=== PATIENT | female | born 1985 | race Caucasian/White ===

== ENCOUNTER → 2021-09-01 02:31 | Outpatient (CLI) | payer OTHER, SELFPAY ==
[2021-09-01 20:05] LABS: SARS-CoV-2 RNA PCR Negative
== END ==
PROVIDERS: Visit Provider Surgery Plastic and Reconstructive Surgery
DX: Z01.812 Encounter for preprocedural laboratory examination (principal); Z20.822 Contact with and (suspected) exposure to COVID-19
CPT/HCPCS: C9803; U0003; U0005

== ENCOUNTER 2021-09-01 08:11 | Outpatient (CLI) | payer OTHER, SELFPAY ==
--- NOTE | 2021-09-01 08:30 | ECG_ITS ---
Measurements Intervals [place] Rate: 76 P: 33 GA: 138 QRS: 18 QRSD: 89 T: -6 QT: 366 QTc: 413 Interpretive Statements SINUS RHYTHM BORDERLINE ST-T WAVE ABNORMALITY- INFERIOR LEADS BASELINE ARTIFACT- I, III, AVR, AVL, AVF BORDERLINE ECG Electronically Signed On 09-01-2021 8:29:31 [employer] by Julio Brambila D.O.
[2021-09-01 08:49] LABS: Anion Gap 8 mmol/L (8-16); Blood Urea Nitrogen 18 mg/dL (7-17); Calcium 9.2 mg/dL (8.4-10.2); Carbon Dioxide 28 mmol/L (22-30); Chloride 100 mmol/L (98-107); Estimated Glomerular Filt Rate > 60; Glucose 64 mg/dL (65-110); Potassium 3.7 mmol/L (3.4-5.0); Sodium 136 mmol/L (137-145)
== END 2021-09-01 08:12 | disposition home or self-care (01) ==
LOC: ANHSURGERY 08:14
PROVIDERS: Anesthesiology; Visit Provider Surgery Plastic and Reconstructive Surgery
DX: Z01.818 Encounter for other preprocedural examination (principal); E88.81 Metabolic syndrome and other insulin resistance
CPT/HCPCS: 36415; 80048; 93005

== ENCOUNTER 2021-09-04 00:10 | Day surgery (SDC) | payer OTHER, SELFPAY ==
[2021-08-25 14:20] VITALS: BMI 34.7
--- NOTE | 2021-08-25 14:34 | PC.NURSE ---
Report to the Outpatient Waiting Room, entrance under the green pavilion located off [facility], at time 0600 on date 09/04/21. OR Time: 0730. - You and your visitor will be asked a series of questions to screen for COVID 19 for your protection. - A mask is required within the hospital. - Only one visitor is allowed at this time. Patient visitors will be guided where to wait when not with patient. Preoperative COVID Testing Requirements: No COVID Test needed if: (proof is required; if not received patient will have Rapid Test prior to entry) - Patient has received COVID Vaccine at least 14 days prior to procedure date or - Patient has positive COVID test result within last 90 days of surgery date. COVID Test needed if above criteria is not met If not COVID vaccinated a COVID test must be conducted within 72 hours of surgery and patient is asked to isolate self from time of testing until procedure. You will go to the [facility] [facility] for your COVID testing. The [facility] [facility] site is located at the corner of [address] [facility]. COVID TEST 09/01 AT 0830 You will only be called if COVID results are positive and your surgeon may reschedule your elective surgery date. Patients may have clear liquids (water, carbonated beverages, clear teas, apple juice) until 3 hours prior to surgery with a maximum of 20 ounces. - No food from midnight until time of surgery - Infants may have breast milk until 4 hours before surgery, infant formula 6 hours prior to surgery. - Children will be allowed to drink immediately following surgery. If applicable, please bring a bottle or sippy cup to assist with drinking. Juice, water, soda, and popsicles are readily available. For infants on formula, please bring formula the day of surgery. Pacifiers are allowed. Take the following medications with a SIP of water the morning of surgery: SERTRALINE, TOPAMAX Medications to discontinue per physician: VITAMINS/SUPPLEMENTS Date to take last dose: 08/31/21 URINE COTININE TEST TO BE DONE MORNING OF SURGERY. IF RESULT IS POSITIVE, MEANING NICOTINE IS DETECTED, DR. MAGANA MAY CANCEL YOUR SURGERY. Please no make-up, nail guamanian, hairspray, perfume, deodorant, or body powder the day of surgery. No jewelry (including any body piercings) or valuables the day of surgery, leave them at home. Please take a shower or bath the night before, or the morning of, surgery with an antibacterial soap. Wear comfortable, loose fitting clothing. Children are encouraged to wear pajamas. - Jewelry must be removed prior to entering the operating room. Rings and piercings that are not removed may be cut off. - The hospital will not accept responsibility for valuables. - Please leave all valuables, including medications, at home the day of surgery. If you are going home after surgery, a licensed race car driver must drive you home. - NO public transportation without another adult. - We recommend that an adult stay with you for 24 hours following discharge. - We also recommend that you do not drive, make important decision, drink alcoholic beverages, or take any drugs that were not prescribed by your health care provider for at least 24 hours after your discharge time. For Pediatric surgeries, we recommend two adults accompany the child home (only one inside the building at this time). Follow any additional instructions given to you from your surgeon. Telephone instructions given to ABDIRAHMAN BOSS and asked if any additional questions and then verbalized understanding. Patient advised to call surgeon office or pre surgery nurse liaison [phone] if any additional questions.
--- NOTE | 2021-09-03 12:16 | P.PNAN_ITS ---
Anes - Initial Pre Proc Eval Procedure: Operation Date: 09/04/21 07:30 Proposed Procedures p Bilateral Breast Augmentation - Kieran Benedict MD s Bilateral Breast Mastopexy - Kieran Benedict MD Date/Time: 09/03/21 12:16 Surgeon: Kieran Benedict MD Pre Op Diagnosis: breast ptosis, micromastia Patient Data Age: 36 Gender: F Height: 1.6 m Weight: 88.9 kg Allergies Allergy/AdvReac Type Severity Reaction Status Date / Time latex Allergy Unknown Rash Verified 09/04/21 07:07 Home Medications Medication Instructions Recorded Confirmed Type multivitamin 1 tablet PO DAILY 03/17/21 08/25/21 History sertraline 100 mg tablet 100 mg PO DAILY 03/17/21 08/25/21 History topiramate 50 mg capsule 50 mg PO DAILY 03/17/21 08/25/21 History sprinkle,extended release 24 hr carisoprodol 350 mg tablet 350 mg PO TID PRN #21 tablet 08/20/21 08/25/21 Rx docusate sodium 100 mg capsule 100 mg PO DAILY #14 cap 08/20/21 08/25/21 Rx ondansetron HCl 4 mg tablet 4 mg PO Q8H #21 tablet 08/20/21 08/25/21 Rx oxycodone-acetaminophen 5 mg-325 1 tablet PO Q6H PRN #30 tablet 08/20/21 08/25/21 Rx mg tablet metformin 500 mg PO BID 08/25/21 08/25/21 History Patient hx anesthesia problems: none Family hx anesthesia problems: none Results Review: All pre-operative results and documents have been reviewed as part of the pre-operative evaluation. [facility] Past Medical History Medical History (Updated 09/03/21 @ 12:17 by Tu Lance DO) Diabetes type 2, controlled Surgical History Surgical History History of cholecystectomy History of laparoscopic adjustable gastric banding History of tubal ligation Social History Social History (Updated 08/20/21 @ 08:43 by Holli Carter) Smoking status: Former smoker Tobacco type: e-cigarettes/vaping Second hand tobacco smoke exposure: No Smoking end date: 07/24/21 Additional smoking assessment comments: QUIT CIGARETTES 07/24/21. VAPES WITH NICOTINE CURRENTLY Alcohol intake: current Alcohol use details: 2/MONTH Substance use: never Substance use type: does not use Living arrangements: with family Additional living arrangements comments: CHILDREN Spiritual care concerns: No Anes - Eval Final PreProcedure Day of Procedure 09/03/21 12:16 Patient weight: obese Heart: regular rate and rhythm Lungs: clear to auscultation and normal air movement Airway: Mallampati scale class II Neurological: alert and oriented Last oral intake: >/= 8 hours ASA classification: III Emergent: no Anesthetic plan: proceed Anesthesia type and monitoring: general LMA and standard monitoring Results Review: All pre-operative results and documents have been reviewed as part of the pre-operative evaluation. Informed Consent: The patient's anesthetic plan and its attendant risks and benefits were discussed with the patient/family/POA. Questions were solicited and answers provided to the satisfaction of the patient/family/POA.
[2021-09-04] VITALS (7 sets, daily range): BP systolic 128–162; BP diastolic 74–96; PULSE 76–115; RESP 14–20; TEMP 36.4–36.7; O2SAT 95–100
[2021-09-04] MEDS: LACTATED RINGERS 1,000 ML 30 ML IV CONT ×2 (06:45→09:41)
[2021-09-04 06:52] LABS: Glucose Point of Care 80 mg/dl (65-105)
--- NOTE | 2021-09-04 07:01 | WPDHPUPDATE1 ---
History and Physical Update Update Date/Time: 09/04/21 07:01 History and Physical has been reviewed, including an updated exam of the patient. There are NO changes in the patient's condition. Risks, benefits, and alternatives have been discussed and questions answered. Patient agrees to proceed with procedure.
[2021-09-04 07:05] LABS: Urine Cotinine POSITIVE
--- NOTE | 2021-09-04 07:16 | W.PM.PROC2 ---
Procedure Note - Detailed Date of Procedure 09/04/21 Pre-op Diagnosis breast ptosis, micromastia Post-op Diagnosis same Procedure Performed Bilateral Augmentation Mastopexy Surgeon Kieran Benedict MD Anesthesia general Findings Bilateral Inverted T Superior Pedicle Bilateral Natrelle Inspira SoftTouch Implants 440cc Right - REF# [id number] SN [id number] Left - REF# [id number] SN [id number] Description of Procedure She is here today for bilateral breast augmentation / mastopexy. Previously and again today the risks, benefits, alternatives were discussed in extensive detail. I wanted her to be very realistic about the risks involved as well as expectations. We discussed aftercare and what to monitor for. Today her cotinine test returned as positive. We had a extensive conversation discussing this. She understands the risks of nicotine can lead to skin , nipple , major complication including but not limited need for reconstructive procedures, skin grafts and other major procedures which can lead to permanent breast deformity. She understands all of this would be at her expense. This has been explained previously and again today in great detail. I want her to be completely clear about these risks prior to proceeding. She is willing to accept this risk. She states that effective immediately she will have no nicotine. She understands that does not correct her current situation however and she is still at risk despite her actions in the future. Again this was outlined extensively in a lengthy open-ended conversation, I was very up front honest given the significance of this because I want her to be well informed that she was making the right decision for her with clear understanding of risks, benefits, and alternatives. She is able to repeat these risks back and states she has been clearly aware since her first consultation and at each visit we discussed this extensively therefore she is not just making this decision today, rather has made this decision over time knowing the above. We offered her other options such as rescheduling or cancelling the procedures. She would like proceed clearly understanding these risks. Made sure answered all of her questions to her satisfaction today and consent was obtained. Marked in the preoperative holding area with their verification. The patient was taken to the operating room placed supine on the operating table. Anesthesia was provided by anesthesiology. A surgical time-out was taken. We cleansed the skin and 1% lidocaine and 0.25% Marcaine with epinephrine was used anesthetize as a field block. She was prepped and draped in a standard sterile fashion. Tegaderm nipple Hennessy were placed. A 15 blade used to make an incision just superior to the inframammary fold. I did leave a small area inferior to this de-epithelialized to protect the T junction. Dissection was continued at 45 degree angle until the chest wall as identified. I incised the pectoralis major along its inferior border and completely released the inferior border leaving the medial border intact. I created a subpectoral pocket in the appropriate dimensions based on our preoperative planning for the implant. I then copiously irrigated with saline solution and verified a strict hemostasis. Next the use a triple antibiotic and Betadine containing solution to irrigate the pocket. I washed my gloves with the triple antibiotic and Betadine solution. We washed the implant immediately upon opening it with this solution and only opened it when we needed it. I used implant funnel and no-touch technique. The implant was introduced into the pocket using the funnel. Having verified positioning of the implant this was closed using 2-0 Vicryl. I tailor tacked the breast into position based on our preoperative markings and placed her in a sitting position. I verified the nipple-areolar location. This was marked at 38 mm. This is based on preo
--- NOTE | 2021-09-04 07:23 | SUR.PREOP ---
0715-COTININE RESULT RECEIVED-POSITIVE. DR. MAGANA MADE AWARE-SPOKE WITH PATIENT AND WILL PROCEED.
[2021-09-04] MEDS: ceFAZolin 2 GM/D5W 50 ML 2 GM/50 ML BAG IVPB (07:25)
[2021-09-04] MEDS: LIDO 1%/EPINEPHRINE 1:100,000 50 ML VIAL 30 ML INFILTRATE (07:36)
[2021-09-04] MEDS: BUPIVACAINE HCL 0.25% PF 30 ML VIAL INFILTRATE (07:36)
[2021-09-04] MEDS: TRANEXAMIC ACID 1,000MG/ISO100 1,000 MG/100 ML BAG 200 MG IVPB (07:37)
[2021-09-04 09:45] LABS: Glucose Point of Care 94 mg/dl (65-105)
[2021-09-04] MEDS: fentaNYL CITRATE INJ (*CRX) 100 MCG/2 ML VIAL 25 MCG IV PUSH ×6 (09:47→10:10)
[2021-09-04] MEDS: HYDROmorphone HCL INJ (*CRX) 1 MG/ML SYR 0.5 MG IV PUSH ×2 (10:14→10:22)
--- NOTE | 2021-09-04 10:25 | SUR.PHASEI ---
PT NOW DROWSY, CLOSING EYES AND RESTING QUIETLY.
--- NOTE | 2021-09-04 10:33 | SUR.PHASEI ---
PT STATES SHE IS READY TO HAVE A DRINK AND MOVE TO [place]. STATES BREASTS ARE SORE
[2021-09-04] MEDS: oxyCODONE HCL (*CRX) 5 MG TAB IR PO (10:46)
== END 2021-09-04 11:30 | disposition home or self-care (01) ==
PROVIDERS: Visit Provider Surgery Plastic and Reconstructive Surgery
PROC: (CPT 19325; principal; 2021-09-04 07:30)
PROC: (CPT 19316; 2021-09-04 07:30)
DX: Z41.1 Encounter for cosmetic surgery (principal); N64.81 Ptosis of breast; N64.82 Hypoplasia of breast; E11.9 Type 2 diabetes mellitus without complications; Z79.84 Long term (current) use of oral hypoglycemic drugs; Z98.84 Bariatric surgery status; F17.290 Nicotine dependence, other tobacco product, uncomplicated; E66.9 Obesity, unspecified; Z68.36 Body mass index [BMI] 36.0-36.9, adult
CPT/HCPCS: 19325; 19316; 80307; 82948; A9270; J0690; J1170; J1580; J2250; J2405; J2704; J3010; J7120